=== PATIENT | male | born 1970 | race Caucasian/White ===

== ENCOUNTER 2023-07-28 07:50 | Outpatient (RCR) | payer BC, SELFPAY | END 2023-07-28 23:59 | disposition home or self-care (01) | LOC: ROT 07:50 | PROVIDERS: ATTENDING PHYSICIAN Orthopaedic Surgery Hand Surgery; FAMILY PHYSICIAN Student in an Organized Health Care Education/Training Program | DX: M25.572 Pain in left ankle and joints of left foot (principal); M72.2 Plantar fascial fibromatosis; M77.02 Medial epicondylitis, left elbow; Z73.6 Limitation of activities due to disability | CPT/HCPCS: 97010; 97035; 97110; 97140; 97161; 97166; 97535 ==

== ENCOUNTER 2023-08-27 06:42 | Outpatient (RCR) | payer BC, SELFPAY | END 2023-08-27 23:59 | disposition home or self-care (01) | LOC: ROT 06:42 | PROVIDERS: ATTENDING PHYSICIAN Orthopaedic Surgery Hand Surgery; FAMILY PHYSICIAN Student in an Organized Health Care Education/Training Program | DX: M77.02 Medial epicondylitis, left elbow (principal); M72.2 Plantar fascial fibromatosis; M25.572 Pain in left ankle and joints of left foot; Z73.6 Limitation of activities due to disability | CPT/HCPCS: 97010; 97035; 97110; 97112; 97140; 97530 ==

== ENCOUNTER 2023-09-08 06:41 | Outpatient (RCR) | payer BC, SELFPAY | END 2023-09-08 23:59 | disposition home or self-care (01) | LOC: ROT 06:41 | PROVIDERS: ATTENDING PHYSICIAN Orthopaedic Surgery Hand Surgery; FAMILY PHYSICIAN Student in an Organized Health Care Education/Training Program | DX: M77.02 Medial epicondylitis, left elbow (principal); Z73.6 Limitation of activities due to disability; M25.572 Pain in left ankle and joints of left foot; M72.2 Plantar fascial fibromatosis | CPT/HCPCS: 97010; 97035; 97110; 97112; 97140; 97530 ==